=== PATIENT | female | born 1975 | race Caucasian/White ===

== ENCOUNTER 2016-12-04 15:36 | Emergency (ER) | payer BC ==
[2016-12-04 15:58] VITALS: BP 121/77
--- NOTE | 2016-12-04 17:57 | UC ---
Skin Complaint HPI - HPI Summary HPI Summary: PAINFUL BLISTERY RASH ON RIGHT SHOULDER. FEVER OF 102F. TREATED TWO WEEKS AGO FOR CONTACT DERMATITIS WITH PREDNISONE. - History of Current Complaint Chief Complaint: UCGeneralIllness Time Seen by Provider: 12/04/16 17:25 Stated Complaint: FEVER, SKIN C/O Hx Obtained From: Patient, Family/Sustainability Analyst Hx Last Menstrual Period: 1 WEEK AGO Onset/Duration: Gradual Onset, Lasting Days, Still Present Skin Exposure Onset/Duration: Days Ago Onset Severity: Mild Current Severity: Mild Location: Discrete - RIGHT SHOULDER Character: Redness, Raised, Painful Aggravating: Touch Alleviating: Nothing Associated Signs & Symptoms: Positive: Fever, Rash, Drainage, Tenderness. Negative: Nausea, Vomiting, Chills, Cough, Wheezing, Chest Pain, Hoarseness, Throat Tightening, Syncope, Bruising, Red Streaks, Joint Swelling Related History: Possible Reaction to: Insect, Possible Reaction to: Environmental Exposure - Allergy/Home Medications Allergies/Adverse Reactions: Allergies Allergy/AdvReac Type Severity Reaction Status Date / Time No Known Allergies Allergy Verified 12/04/16 15:58 Home Medications: Home Medications Amphetamine MIXED SALTS TAB* [Adderall TAB*] 5 mg PO BID 12/04/16 [History Confirmed 12/04/16] Ibuprofen TAB* [Advil TAB*] 800 mg PO PRN 12/04/16 [History] Review of Systems Constitutional: Fever Skin: Rash Eyes: Negative ENT: Negative Respiratory: Negative Cardiovascular: Negative Gastrointestinal: Negative Genitourinary: Negative Motor: Negative Neurovascular: Negative Musculoskeletal: Arthralgia, Myalgia Neurological: Negative Psychological: Negative All Other Systems Reviewed And Are Negative: Yes PMH/Surg Hx/FS Hx/Imm Hx Previously Healthy: Yes - Surgical History Surgical History: Yes Surgery Procedure, Year, and Place: polyp on vocal cords removed 2009, RIGHT OOPHORECTOMY/FALLOPIAN TUBE REMOVAL - Family History Known Family History: Negative: Blood Disorder - Social History Occupation: Employed Full-time Lives: With Family Alcohol Use: Occasionally Substance Use Type: None Smoking Status (MU): Never Smoked Tobacco Physical Exam Triage Information Reviewed: Yes Appearance: Well-Appearing, No Pain Distress, Well-Nourished Vital Signs: Initial Vital Signs Temp 97.8 F 12/04/16 15:54 Pulse 81 12/04/16 15:54 Resp 16 12/04/16 15:54 BP 121/77 12/04/16 15:54 Pulse Ox 100 12/04/16 15:54 Vital Signs Reviewed: Yes Eye Exam: Normal ENT Exam: Normal ENT: Positive: Hearing grossly normal, Pharynx normal, TMs normal Dental Exam: Normal Neck exam: Normal Neck: Positive: Supple, Nontender Respiratory Exam: Normal Respiratory: Positive: Chest non-tender, Lungs clear, Normal breath sounds, No respiratory distress, No accessory muscle use Cardiovascular Exam: Normal Cardiovascular: Positive: RRR, No Murmur Abdominal Exam: Normal Musculoskeletal Exam: Normal Musculoskeletal: Positive: Strength Intact, ROM Intact Neurological Exam: Normal Psychological Exam: Normal Skin: Positive: rashes - TENDER ERYTHEMATOUS VESICULAR RASH 3CM X 2CM RIGHT SHOULDER Course/Dx - Differential Diagnoses - Skin Complaint Differential Diagnoses: Allergic Reaction, Cellulitis, Eczema, Impetigo, Local Allergic Reaction, Poison Tatyana, Scabies, Systemic Illness, Tick Born Illness, Tinea, Varicella Zoster - HERPES ZOSTER RIGHT SHOULDER - Diagnoses Provider Diagnoses: HERPES ZOSTER RIGHT SHOULDER Discharge - Discharge Plan Condition: Stable Disposition: HOME Prescriptions: Famciclovir [Famvir] 500 mg PO TID #21 tab Patient Education Materials: Shingles (ED) Referrals: Wilma Sidhu MD [Primary Care Provider] - Images Front/Back of Body, Lg ([place]): 1 - TENDER ERYTHEMATOUS VESICULAR RASH 3CM X 2CM RIGHT SHOULDER
== END 2016-12-04 17:54 | disposition home or self-care (01) ==
LOC: UCEAST 15:36
DX: B02.9 Zoster without complications (principal)
CPT/HCPCS: 99212; G0463

== ENCOUNTER 2016-12-05 12:04 | Emergency (ER) | payer BC ==
[2016-12-05] MEDS ORDERED: NS 0.9% 1000 ML* 1,000 ML IV ONE (12:36)
[2016-12-05] MEDS: Ketorolac INJ* 30 MG/ML 1 ML VIAL IV PUSH ONE ×2 (13:19→14:28)
[2016-12-05 13:31] LABS: Hematocrit 34 % (35-47); Hemoglobin 11.3 g/dl (12.0-16.0); Mean Corpuscular HGB Conc 33 g/dl (31-36); Mean Corpuscular Hemoglobin 26 pg (27-31); Mean Corpuscular Volume 77 fL (80-97); Mean Platelet Volume 8 um3 (7.4-10.4); Red Blood Count 4.43 10^6/ul (4.0-5.4); Red Cell Distribution Width 16 % (10.5-15); White Blood Count 5.2 10^3/ul (3.5-10.8)
[2016-12-05] MEDS ORDERED: ceFAZolin VIAL(*) 1 GM in NS 0.9% 50 ML* 50 ML IVPB ONE (13:38)
[2016-12-05 13:46] LABS: Albumin 3.9 g/dL (3.2-5.2); BUN/Creatinine Ratio 10.6 (8-20); Calcium 8.9 mg/dL (8.6-10.3); EGFR African American 126.3 (>60); EGFR Non-African American 98.2 (>60); Globulin 3.1 g/dL (2-4); Potassium 3.6 mmol/L (3.5-5.0); Total Bilirubin 0.2 mg/dL (0.2-1.0)
--- NOTE | 2016-12-05 14:20 | ED ---
Skin Complaint - HPI Summary HPI Summary: 41F presents with rash on left shoulder that has been spreading for 2 days. She states that she though she got a bug bite on the area and then noticed some redness to the area. She has been having pain down entire length of body. She denies any burning pain to the area. She states the area is warm to touch and is only tender when palpate it. She has also been having fevers. She has been taking ibuprofen for pain. She was seen at urgent care and told she has shingles and prescribed antiviral which she says has not been helping. - History of Current Complaint Chief Complaint: EDRashSkinAbscess Time Seen by Provider: 12/05/16 12:15 Stated Complaint: FEVER, POSSIBLE SHINGLES Hx Last Menstrual Period: 1 WEEK AGO Pain Intensity: 2 - Allergy/Home Medications Allergies/Adverse Reactions: Allergies Allergy/AdvReac Type Severity Reaction Status Date / Time No Known Allergies Allergy Verified 12/04/16 15:58 PMH/Surg Hx/FS Hx/Imm Hx Endocrine/Hematology History: Denies: Hx Diabetes, Hx Thyroid Disease Cardiovascular History: Denies: Hx Hypertension Respiratory History: Denies: Hx Asthma, Hx Chronic Obstructive Pulmonary Disease (COPD) GI History: Denies: Hx Ulcer - Surgical History Surgery Procedure, Year, and Place: polyp on vocal cords removed 2009, RIGHT OOPHORECTOMY/FALLOPIAN TUBE REMOVAL Infectious Disease History: No Infectious Disease History: Denies: Hx Hepatitis, Hx Human Immunodeficiency Virus (HIV), Traveled Outside the [place] in Last 30 Days - Family History Known Family History: Negative: Blood Disorder - Social History Alcohol Use: Occasionally Substance Use Type: Reports: None Smoking Status (MU): Never Smoked Tobacco Review of Systems Positive: Fever Negative: Chest Pain Negative: Shortness Of Breath Positive: Rash All Other Systems Reviewed And Are Negative: Yes Physical Exam Triage Information Reviewed: Yes Vital Signs On Initial Exam: Initial Vitals Temp Pulse Resp BP Pulse Ox 99.7 F 92 20 150/89 100 12/05/16 12:10 12/05/16 12:10 12/05/16 12:10 12/05/16 12:10 12/05/16 12:10 Vital Signs Reviewed: Yes Appearance: Positive: Well-Appearing Skin: Positive: Warm, Dry, Other - 10 cm by 12 cm area of warmth and erythema to left shoulder with two blister like structures in center with surrounding streaking and tender to touch Head/Face: Positive: Normal Head/Face Inspection Eyes: Positive: Normal, Conjunctiva Clear ENT: Positive: Normal ENT inspection, Pharynx normal, TMs normal Respiratory/Lung Sounds: Positive: Clear to Auscultation, Breath Sounds Present Cardiovascular: Positive: Normal, RRR Musculoskeletal: Positive: Strength/ROM Intact - left shoulder, Other - good pulses Diagnostics - Vital Signs Vital Signs Temp Pulse Resp BP Pulse Ox 12/05/16 12:20 99.7 F 92 20 150/89 100 12/05/16 12:10 99.7 F 92 20 150/89 100 - Laboratory Lab Results: Lab Results 12/05/16 12/05/16 12/05/16 Range/Units 13:15 13:15 13:15 WBC 5.2 (3.5-10.8) 10^3/ul RBC 4.43 (4.0-5.4) 10^6/ul Hgb 11.3 L (12.0-16.0) g/dl Hct 34 L (35-47) % MCV 77 L (80-97) fL MCH 26 L (27-31) pg MCHC 33 (31-36) g/dl RDW 16 H (10.5-15) % Plt Count 172 (150-450) 10^3/ul MPV 8 (7.4-10.4) um3 Neut % (Auto) 78.1 (38-83) % Lymph % (Auto) 10.1 L (25-47) % [place] % (Auto) 11.2 H (1-9) % Eos % (Auto) 0.3 (0-6) % Baso % (Auto) 0.3 (0-2) % Absolute Neuts (auto) 4.0 (1.5-7.7) 10^3/ul Absolute Lymphs (auto) 0.5 L (1.0-4.8) 10^3/ul Absolute Monos (auto) 0.6 (0-0.8) 10^3/ul Absolute Eos (auto) 0 (0-0.6) 10^3/ul Absolute Basos (auto) 0 (0-0.2) 10^3/ul Absolute Nucleated RBC 0 10^3/ul Nucleated RBC % 0 Sodium 135 (133-145) mmol/L Potassium 3.6 (3.5-5.0) mmol/L Chloride 104 (101-111) mmol/L Carbon Dioxide 27 (22-32) mmol/L Anion Gap 4 (2-11) mmol/L BUN 7 (6-24) mg/dL Creatinine 0.66 (0.51-0.95) mg/dL Est GFR ( Amer) 126.3 (>60) Est GFR (Non-Af Amer) 98.2 (>60) BUN/Creatinine Ratio 10.6 (8-20) Glucose 82 (70-100) mg/dL Lactic Acid 0.9 (0.5-2.0) mmol/L Calcium 8.9 (8.6-10.3) mg/dL Total Bilirubin 0.20 (0.2-1.0) mg/dL AST 25 (13-39) U/L ALT 20 (7-52) U/L Alkaline Phosphatase 28 L (34-104) U/L C-React Prot High Sens 50.58 mg/L Total Protein 7.0 (6.4-8.9) g/dL Albumin 3.9 (3.2-5.2) g/dL Globulin 3.1 (2-4) g/dL Albumin/Globulin Ratio 1.3 (1-3) Result Diagrams: 12/05/16 13:15 12/05/16 13:15 Lab Statement: Any lab studies that have been ordered have been reviewed, and results considered in the medical decision making process. Course/Dx - Course Course Of Treatment: 41F presents with rash on left shoulder that has been spreading for 2 days. She states that she though she got a bug bite on the area and then noticed so redness to the area. She denies any burning pain to the area. She states the area is warm to touch and is only tender when palpate it. She has also been having fevers. She was seen at urgent care and told she has shingles and prescribed antiviral which she says has not been helping. Blister area on exam could look like shingles but pain pattern does not follow shingles. area appears more cellulitic around lesions. no abscess felt. labs wbc 5, crp 50, lactic normal. has been having fevers but labs do not support admission and has not failed outpatient therapy so will have start keflex. gave dose of ancef. told to continue antiviral as could be shingles but unlikely. told if redness spreads to return. patient understands and agrees with plan - Differential Diagnoses - Skin Complaint Differential Diagnoses: Abscess, Cellulitis, Contact Dermatitis, Other - shingles - Diagnoses Provider Diagnoses: left shoulder cellulitis Discharge - Discharge Plan Condition: Good Disposition: HOME Prescriptions: Cephalexin CAP* [Keflex CAP*] 500 mg PO QID #37 cap Patient Education Materials: Cellulitis (ED) Referrals: Wilma Sidhu MD [Primary Care Provider] - Additional Instructions: Take Keflex 4 times a day for 10 days, take one dose tonight Take Tylenol or ibuprofen for pain every 6 hours Follow up with primary within 5 days Return to ED if redness spreads or any new or worsening symptoms
[2016-12-05 14:59] VITALS: BP 131/69
== END 2016-12-05 14:59 | disposition home or self-care (01) ==
LOC: ED 12:04
DX: L03.114 Cellulitis of left upper limb (principal); R50.9 Fever, unspecified; R21 Rash and other nonspecific skin eruption
CPT/HCPCS: 36415; 80053; 83605; 85025; 86141; 87040; 96374; 99282; J0690; J1885

== ENCOUNTER 2016-12-18 22:42 | Emergency (ER) | payer BC ==
[2016-12-19 00:21] VITALS: BP 138/98
--- NOTE | 2016-12-19 00:27 | ED ---
Skin Complaint - HPI Summary HPI Summary: Pr reports having been dx with cellulitis x 1.5 weeks ago. Pt reports having taken only 1/2 of antibiotic dose, and is presenting with increased erythema/ pain to left shoulder/left back/left upper chest. Pt denies known fever. She was seen here last week and was dx with bug bite which became infected into a cellulitis. She took 4 days of the Keflex and discontinued d/t improvement. Today, she noticed upon getting out of the shower worsening redness, erythema and the area of redness has spread to the left shoulder and left neck. Upon last visit, she had fevers, aches and chills. She denies these symptoms today. Denies known tick bite. No EM rash noted. Pictures brought in by patient reveals bug bite. - History of Current Complaint Chief Complaint: EDRashSkinAbscess Time Seen by Provider: 12/19/16 00:04 Stated Complaint: DX CELLULITIS-SPREADING Hx Obtained From: Patient Hx Last Menstrual Period: 1 WEEK AGO Onset/Duration: Started Hours Ago Skin Exposure Onset/Duration: Weeks Ago Timing: Constant Onset Severity: Moderate Current Severity: Moderate Pain Intensity: 0 Pain Scale Used: 0-10 Numeric Skin Location: Diffuse Character: Pain Aggravating Symptom(s): Nothing Alleviating Symptom(s): Nothing Associated Signs & Symptoms: Negative Related History: Insect Bite/Sting - Allergy/Home Medications Allergies/Adverse Reactions: Allergies Allergy/AdvReac Type Severity Reaction Status Date / Time No Known Allergies Allergy Verified 12/18/16 22:47 PMH/Surg Hx/FS Hx/Imm Hx Previously Healthy: Yes Endocrine/Hematology History: Denies: Hx Diabetes, Hx Thyroid Disease Cardiovascular History: Denies: Hx Hypertension Respiratory History: Denies: Hx Asthma, Hx Chronic Obstructive Pulmonary Disease (COPD) GI History: Denies: Hx Ulcer - Surgical History Surgery Procedure, Year, and Place: polyp on vocal cords removed 2009, RIGHT OOPHORECTOMY/FALLOPIAN TUBE REMOVAL - Immunization History Date of Tetanus Vaccine: unk Date of Influenza Vaccine: unk Hx Pertussis Vaccination: No Immunizations Up to Date: Unable to Obtain/Confirm Infectious Disease History: No Infectious Disease History: Denies: Hx Hepatitis, Hx Human Immunodeficiency Virus (HIV), Traveled Outside the [place] in Last 30 Days - Family History Known Family History: Negative: Blood Disorder - Social History Occupation: Employed Full-time Lives: With Family Alcohol Use: Occasionally Hx Substance Use: No Substance Use Type: Reports: None Hx Tobacco Use: No Smoking Status (MU): Never Smoked Tobacco Do You Chew or Dip Tobacco: No Review of Systems Constitutional: Negative Eyes: Negative Gastrointestinal: Negative Positive: no symptoms reported, see HPI Musculoskeletal: Negative Positive: Rash Neurological: Negative Psychological: Normal All Other Systems Reviewed And Are Negative: Yes Physical Exam Triage Information Reviewed: Yes Vital Signs On Initial Exam: Initial Vitals Temp Pulse Resp BP Pulse Ox 98.1 F 80 16 140/83 98 12/18/16 22:45 12/18/16 22:45 12/18/16 22:45 12/18/16 22:45 12/18/16 22:45 Vital Signs Reviewed: Yes Appearance: Positive: Well-Appearing, Well-Nourished Skin: Positive: Warm, Skin Color Reflects Adequate Perfusion, Other - rash to left shoulder Head/Face: Positive: Normal Head/Face Inspection Eyes: Positive: EOMI, ERENDIRA, Conjunctiva Clear Neck: Positive: Supple, No Lymphadenopathy Respiratory/Lung Sounds: Positive: Clear to Auscultation, Breath Sounds Present Cardiovascular: Positive: Normal, RRR, Pulses are Symmetrical in both Upper and Lower Extremities Musculoskeletal: Positive: Normal, Strength/ROM Intact Neurological: Positive: Speech Normal Psychiatric: Positive: Normal AVPU Assessment: Alert - [place] Coma Scale Coma Scale Total: 15 Diagnostics - Vital Signs Vital Signs Temp Pulse Resp BP Pulse Ox 12/19/16 00:15 98.2 F 77 16 138/98 98 12/18/16 22:45 98.1 F 80 16 140/83 98 - Laboratory Lab Statement: Any lab studies that have been ordered have been reviewed, and results considered in the medical decision making process. Course/Dx - Course Course Of Treatment: Patient presents with cellulitis from a bug bite to the shoulder. Given Keflex x 10 days. She has 4 days at home - given 5 days more for 10 day course. Patient is encouraged to return if symptoms become worse - Differential Diagnoses - Skin Complaint Differential Diagnoses: Abscess, Cellulitis, Drug Rash - Diagnoses Provider Diagnoses: Cellulitis Discharge - Discharge Plan Condition: Stable Disposition: HOME Prescriptions: Cephalexin CAP* [Keflex CAP*] 500 mg PO QID #20 cap MDD 4 Patient Education Materials: Insect Bite or Sting (ED), Cold Compress or Soak ( ED) Referrals: Elke Davidson MD [Primary Care Provider] - Additional Instructions: Keflex x 10 days
== END 2016-12-19 00:43 | disposition home or self-care (01) ==
LOC: SUPCPDRO 22:42 → ED 22:42
DX: L03.90 Cellulitis, unspecified (principal); R21 Rash and other nonspecific skin eruption
CPT/HCPCS: 99282

== ENCOUNTER 2016-12-21 16:04 | Emergency (ER) | payer BC ==
[2016-12-21 19:42] LABS: Hematocrit 32 % (35-47); Hemoglobin 10.3 g/dl (12.0-16.0); Mean Corpuscular HGB Conc 32 g/dl (31-36); Mean Corpuscular Hemoglobin 25 pg (27-31); Mean Corpuscular Volume 78 fL (80-97); Mean Platelet Volume 8 um3 (7.4-10.4); Red Blood Count 4.15 10^6/ul (4.0-5.4); Red Cell Distribution Width 16 % (10.5-15); White Blood Count 5.8 10^3/ul (3.5-10.8)
[2016-12-21 19:56] LABS: BUN/Creatinine Ratio 18.8 (8-20); C Reactive Protein 15.34 mg/L (< 5.00); Calcium 8.6 mg/dL (8.6-10.3); EGFR Non-African American 93.3 (>60); Globulin 2.8 g/dL (2-4); Potassium 3.7 mmol/L (3.5-5.0); Total Bilirubin 0.2 mg/dL (0.2-1.0); Total Protein 6.8 g/dL (6.4-8.9)
[2016-12-21] MEDS ORDERED: DOXYcycline CAP(*) 100 MG PO ONE (20:13)
[2016-12-21 20:59] VITALS: BP 104/79
--- NOTE | 2016-12-22 17:31 | ED ---
Serjio Higgins Alok, scribed for Noah Coon MD on 12/21/16 at 1851 . Skin Complaint - HPI Summary HPI Summary: 41F presents to the ED with a erythematous, painful rash at the left shoulder. Pt states that what began as two pimples at the left shoulder 2.5 weeks ago was followed by 3 days of a fever of 103F. Pt was later given Cephalexin which she took for 3 days before discontinuing on her own volition due to no improvements. Then 4 days ago her rash began to grow erythematous and spreading all over her shoulder. Pt denies any fevers since initially. Pt has NKDA. - History of Current Complaint Chief Complaint: EDRashSkinAbscess Time Seen by Provider: 12/21/16 17:57 Stated Complaint: DX CELLULITITS/NOT IMPROVING Hx Obtained From: Patient Hx Last Menstrual Period: 1 WEEK AGO Onset/Duration: Started Weeks Ago, Atraumatic, Still Present Timing: Constant Onset Severity: Moderate Current Severity: Moderate Skin Location: Other: - left shoulder Character: Pain, Redness Aggravating Symptom(s): Nothing Alleviating Symptom(s): Nothing Associated Signs & Symptoms: Fever - Allergy/Home Medications Allergies/Adverse Reactions: Allergies Allergy/AdvReac Type Severity Reaction Status Date / Time No Known Allergies Allergy Verified 12/18/16 22:47 PMH/Surg Hx/FS Hx/Imm Hx Endocrine/Hematology History: Denies: Hx Diabetes, Hx Thyroid Disease Cardiovascular History: Denies: Hx Hypertension Respiratory History: Denies: Hx Asthma, Hx Chronic Obstructive Pulmonary Disease (COPD) GI History: Denies: Hx Ulcer - Surgical History Surgery Procedure, Year, and Place: polyp on vocal cords removed 2009, RIGHT OOPHORECTOMY/FALLOPIAN TUBE REMOVAL - Immunization History Date of Tetanus Vaccine: unk Date of Influenza Vaccine: unk Infectious Disease History: Denies: Hx Hepatitis, Hx Human Immunodeficiency Virus (HIV), Traveled Outside the [place] in Last 30 Days - Family History Known Family History: Negative: Blood Disorder - Social History Occupation: Employed Full-time Lives: With Family Alcohol Use: None Hx Substance Use: No Substance Use Type: Reports: None Hx Tobacco Use: No Smoking Status (MU): Never Smoked Tobacco Review of Systems Positive: Fever Positive: Rash All Other Systems Reviewed And Are Negative: Yes Physical Exam Triage Information Reviewed: Yes Vital Signs On Initial Exam: Initial Vitals Temp Pulse Resp BP Pulse Ox 98.3 F 79 16 129/77 100 12/21/16 16:29 12/21/16 16:29 12/21/16 16:29 12/21/16 16:29 12/21/16 16:29 Vital Signs Reviewed: Yes Appearance: Positive: Well-Appearing, No Pain Distress Skin: Positive: Other - [place] lesion over whole left shoulder. Head/Face: Positive: Normal Head/Face Inspection Eyes: Positive: Normal ENT: Positive: Normal ENT inspection Neck: Positive: Other: - Tender Lymphadenopathy Respiratory/Lung Sounds: Positive: Clear to Auscultation, Breath Sounds Present Cardiovascular: Positive: RRR Abdomen Description: Positive: Nontender, Soft Bowel Sounds: Positive: Present Musculoskeletal: Positive: Normal Neurological: Positive: Normal Psychiatric: Positive: Normal, Affect/Mood Appropriate - [place] Coma Scale Coma Scale Total: 15 Diagnostics - Vital Signs Vital Signs Temp Pulse Resp BP Pulse Ox 12/21/16 16:29 98.3 F 79 16 129/77 100 - Laboratory Lab Results: Lab Results 12/21/16 12/21/16 Range/Units 19:30 19:30 WBC 5.8 (3.5-10.8) 10^3/ul RBC 4.15 (4.0-5.4) 10^6/ul Hgb 10.3 L (12.0-16.0) g/dl Hct 32 L (35-47) % MCV 78 L (80-97) fL MCH 25 L (27-31) pg MCHC 32 (31-36) g/dl RDW 16 H (10.5-15) % Plt Count 243 (150-450) 10^3/ul MPV 8 (7.4-10.4) um3 Neut % (Auto) 68.5 (38-83) % Lymph % (Auto) 19.9 L (25-47) % [place] % (Auto) 10.0 H (1-9) % Eos % (Auto) 1.1 (0-6) % Baso % (Auto) 0.5 (0-2) % Absolute Neuts (auto) 4.0 (1.5-7.7) 10^3/ul Absolute Lymphs (auto) 1.2 (1.0-4.8) 10^3/ul Absolute Monos (auto) 0.6 (0-0.8) 10^3/ul Absolute Eos (auto) 0.1 (0-0.6) 10^3/ul Absolute Basos (auto) 0 (0-0.2) 10^3/ul Absolute Nucleated RBC 0 10^3/ul Nucleated RBC % 0.1 Sodium 136 (133-145) mmol/L Potassium 3.7 (3.5-5.0) mmol/L Chloride 106 (101-111) mmol/L Carbon Dioxide 25 (22-32) mmol/L Anion Gap 5 (2-11) mmol/L BUN 13 (6-24) mg/dL Creatinine 0.69 (0.51-0.95) mg/dL Est GFR ( Amer) 120.0 (>60) Est GFR (Non-Af Amer) 93.3 (>60) BUN/Creatinine Ratio 18.8 (8-20) Glucose 83 (70-100) mg/dL Calcium 8.6 (8.6-10.3) mg/dL Total Bilirubin 0.20 (0.2-1.0) mg/dL AST 17 (13-39) U/L ALT 14 (7-52) U/L Alkaline Phosphatase 46 (34-104) U/L C-Reactive Protein 15.34 H (< 5.00) mg/L Total Protein 6.8 (6.4-8.9) g/dL Albumin 4.0 (3.2-5.2) g/dL Globulin 2.8 (2-4) g/dL Albumin/Globulin Ratio 1.4 (1-3) Result Diagrams: 12/21/16 19:30 12/21/16 19:30 Lab Statement: Any lab studies that have been ordered have been reviewed, and results considered in the medical decision making process. Course/Dx - Course Course Of Treatment: Ms. Sue has had an erythematous area on her left shoulder for a couple weeks that was first treated as an insect bite and then as cellulitis. She continues with erythema on her shoulder and the shoulder joint aches. She has a large erythematous circular band with pale skiin behind and a small area of erythema at the original site. This could be a large erythema chronica migrans lesion. Her labs are normal and I will switch her to doxycycline. Tick born panel has been sent. - Diagnoses Provider Diagnoses: Erythema chronicum migrans Discharge - Discharge Plan Condition: Stable Disposition: HOME Prescriptions: DOXYcycline CAP(*) [DOXYcycline 100MG CAP(*)] 100 mg PO BID #28 cap Patient Education Materials: Lyme Disease (ED) Referrals: Elke Davidson MD [Primary Care Provider] - Additional Instructions: Stop your Keflex and follow up with your primary care provider. The documentation as recorded by the Serjio bower Alok accurately reflects the service I personally performed and the decisions made by me, Noah Coon MD.
[2016-12-25 00:31] LABS: B garinii/B afzelii PCR Negative (Negative); B mayonii PCR Negative (Negative)
[2016-12-25 01:28] LABS: B. miyamotoi PCR, B Negative (Negative); Babesia divergens/MO-1 Negative (Negative); Babesia ducani Negative (Negative); Ehrlichia ewingii/canis Negative (Negative)
== END 2016-12-21 21:01 | disposition home or self-care (01) ==
LOC: ED 16:04
DX: A69.20 Lyme disease, unspecified (principal); R21 Rash and other nonspecific skin eruption; R50.9 Fever, unspecified
CPT/HCPCS: 36415; 80053; 85025; 86140; 87476; 87798; 99283; A9270-GY